=== PATIENT | female | born 1980 | race Caucasian/White ===

== ENCOUNTER 2017-02-18 11:32 | Emergency (ER) | payer MEDICAID ==
[~2017-02-18] VITALS: Ht 170.2 cm; Wt 60.8 kg
--- NOTE | 2017-02-18 11:51 | NUR ---
DR MATTA AT BEDSIDE FOR EVALUATION. URINE SPECIMEN SENT TO LAB. US DONE AT BEDSIDE.
[2017-02-18 12:15] LABS: *BILIRUBIN,URIN NEGATIVE (NEGATIVE); *BLOOD, URINE NEGATIVE (NEGATIVE); *CLARITY,URINE CLEAR (CLEAR); *COLOR,URINE YELLOW (YELLOW); *KETONES,URINE NEGATIVE (NEGATIVE); *PROTEIN,URINE NEGATIVE (NEGATIVE); *UROBILINOGEN,URINE 0.2 E.U./dl (NORMAL); LEUKOCYTE ESTERASE ,URINE NEGATIVE (NEGATIVE); NITRITE, URINE NEGATIVE (NEGATIVE); UGLUCOSE NEGATIVE (NEGATIVE)
[2017-02-18 12:22] LABS: BACTERIA,URINE FEW /HPF (NONE SEEN); MUCUS,URINE FEW /LPF (0-FEW); RBC,URINE NONE SEEN /HPF (0-3); SQUAMOUS EPITHELIAL CELL,UR MODERATE /HPF (NONE SEEN); WBC,URINE 0-3 /HPF (0-3)
[2017-02-18 13:01] VITALS: BP 109/71
--- NOTE | 2017-02-18 13:01 | NUR ---
Patient discharged to home in stable conditon. Written and verbal after care instructions given. Patient verbalizes understanding of instructions.pt walks in steady gait, no sign of distress
== END 2017-02-18 13:03 | disposition home or self-care (01) ==
LOC: ER 11:32
DX: O26.892 Other specified pregnancy related conditions, second trimester (principal); Z3A.20 20 weeks gestation of pregnancy
CPT/HCPCS: 76856; A4663

== ENCOUNTER 2017-10-15 10:49 | Emergency (ER) | payer MEDICAID ==
[~2017-10-15] VITALS: Ht 172.7 cm; Wt 61.2 kg
[2017-10-15] MEDS ORDERED: HYDROCODONE/APAP 5-325MG TABLET ONE (12:07)
[2017-10-15 12:14] LABS: BASOPHILS % (AUTO) 0.5 % (0.0-2.0); EOSINOPHILS # (AUTO) 1.5 K/uL (0.0-0.7); EOSINOPHILS % (AUTO) 19.2 % (0.0-7.0); HEMATOCRIT 39.1 % (31.2-41.9); HEMOGLOBIN 13.1 g/dL (10.9-14.3); LYMPHOCYTES # (AUTO) 1.7 K/uL (20.0-40.0); LYMPHOCYTES % (AUTO) 21.7 % (20.5-51.5); MEAN CORPUSCULAR HEMOGLOBIN 30.2 uug (24.7-32.8); MEAN CORPUSCULAR HGB CONC 34 g/dL (32.3-35.6); MEAN CORPUSCULAR VOLUME 90.1 fL (75.5-95.3); MONOCYTES # (AUTO) 0.5 K/uL (2.0-10.0); MONOCYTES % (AUTO) 6.7 % (0.0-11.0); NEUTROPHILS % (AUTO) 51.9 % (38.5-71.5); PLATELET COUNT (AUTO) 202 K/uL (179-408); RED BLOOD CELL COUNT(AUTO) 4.34 MIL/uL (3.63-4.92); WHITE BLOOD COUNT (AUTO) 7.7 K/uL (3.8-11.8)
[2017-10-15] MEDS ORDERED: HYDROCODONE/APAP 5-325MG TABLET PO ONE (12:15)
[2017-10-15 12:25] LABS: *BILIRUBIN,URIN NEGATIVE (NEGATIVE); *BLOOD, URINE NEGATIVE (NEGATIVE); *CLARITY,URINE CLEAR (CLEAR); *COLOR,URINE YELLOW (YELLOW); *KETONES,URINE NEGATIVE (NEGATIVE); *PROTEIN,URINE NEGATIVE (NEGATIVE); *UROBILINOGEN,URINE 0.2 E.U./dl (NORMAL); LEUKOCYTE ESTERASE ,URINE NEGATIVE (NEGATIVE); NITRITE, URINE NEGATIVE (NEGATIVE); UGLUCOSE NEGATIVE (NEGATIVE)
[2017-10-15 12:25] LABS: CREATININE 0.9 mg/dL (0.6-1.3); POTASSIUM 4.7 mmol/L (3.5-5.1)
[2017-10-15 12:30] LABS: BILIRUBIN,DIRECT 0.1 mg/dL (0.0-0.2); BILIRUBIN,TOTAL 0.2 mg/dL (0.2-1.0); TOTAL PROTEIN, SERUM 7.5 g/dL (6.4-8.2)
[2017-10-15 12:32] LABS: BACTERIA,URINE NONE SEEN /HPF (NONE SEEN); RBC,URINE 0-3 /HPF (0-3); SQUAMOUS EPITHELIAL CELL,UR FEW /HPF (NONE SEEN); WBC,URINE NONE SEEN /HPF (0-3)
--- NOTE | 2017-10-15 13:48 | NUR ---
PT WAS EVALUATED BY DR NOLAND. PT WAS D/C TO HOME. D/C INSTRUCTIONS GIVEN TO THE PT BY DR NOLAND.
[2017-10-15 13:49] VITALS: BP 123/77
== END 2017-10-15 13:49 | disposition home or self-care (01) ==
LOC: ER 10:49
DX: R10.10 Upper abdominal pain, unspecified (principal)
CPT/HCPCS: 36415; 70030-TC; 76700; 83690; 84703; 85025; A4663

== ENCOUNTER 2021-09-19 10:57 | Emergency (ER) | payer MEDICAID ==
[~2021-09-19] VITALS: Ht 172.7 cm; Wt 61.2 kg
--- NOTE | 2021-09-19 11:00 | NUR ---
PT IS IN ROOM #2B. DR MEDRANO EVALUATED THE PT.
[2021-09-19] MEDS: KETOROLAC TROMETHAMINE 15 MG INJ IM ONE (11:39)
[2021-09-19] MEDS ORDERED: KETOROLAC TROMETHAMINE 15 MG INJ ONE (11:47)
[2021-09-19 11:54] LABS: *URINE HCG, QUAL NEGATIVE (NEGATIVE)
[2021-09-19] MEDS ORDERED: IBUP-1955 PO (12:23)
[2021-09-19] MEDS ORDERED: CYCL5TAB PO (12:23)
[2021-09-19] MEDS: HYDROCODONE/APAP 5-325MG TABLET PO ONE (12:43)
[2021-09-19] MEDS ORDERED: HYDROCODONE/APAP 5-325MG TABLET ONE (12:53)
--- NOTE | 2021-09-19 14:04 | NUR ---
PT WAS D/C'd TO HOME. D/C INSTRUCTIONS GIVEN TO THE PT BY DR MEDRANO.
[2021-09-19 14:05] VITALS: BP 131/77
== END 2021-09-19 14:06 | disposition home or self-care (01) ==
LOC: ER 10:57
DX: M54.50 Low back pain, unspecified (principal)
CPT/HCPCS: 72110; 84703; 96372; 99284; J1885; A4663

== ENCOUNTER 2022-09-11 06:23 | Emergency (ER) | payer MEDICAID ==
[~2022-09-11] VITALS: Ht 165.1 cm; Wt 62.6 kg
[~2022-09-11 06:23] MED LIST: CYCL5TAB PO; IBUP-1955 PO
--- NOTE | 2022-09-11 07:04 | NUR ---
PT IS IN ROOM #1A. DR MEDRANO EVALUATED THE PT.
[2022-09-11] MEDS ORDERED: ALPRAZOLAM 0.5 MG TABLET ONE ×2 (07:14→08:32)
[2022-09-11] MEDS ORDERED: IV NORMAL SALINE 1000 ML BAG IV ONE (07:15)
[2022-09-11] MEDS ORDERED: ALPRAZOLAM 0.25 MG TABLET PO ONE ×2 (07:15→09:00)
[2022-09-11 07:30] LABS: HEMATOCRIT 38.8 % (31.2-41.9); MEAN CORPUSCULAR HEMOGLOBIN 30.5 uug (24.7-32.8); MEAN CORPUSCULAR VOLUME 92.2 fL (75.5-95.3); PLATELET COUNT (AUTO) 234 K/uL (179-408)
[2022-09-11 07:39] LABS: CREATININE 0.7 mg/dL (0.6-1.3); POTASSIUM 4.4 mmol/L (3.5-5.1)
--- NOTE | 2022-09-11 09:05 | NUR ---
PT WAS D/C'd TO HOME. D/C INSTRUCTIONS GIVEN TO THE PT BY DR MEDRANO.
[2022-09-11 09:06] VITALS: BP 127/69
== END 2022-09-11 09:07 | disposition home or self-care (01) ==
LOC: ER 06:27
DX: F41.9 Anxiety disorder, unspecified (principal); E87.1 Hypo-osmolality and hyponatremia; Z76.0 Encounter for issue of repeat prescription; F32.A Depression, unspecified; Z87.19 Personal history of other diseases of the digestive system
CPT/HCPCS: 99284; 96360; 80048; 85025; 36415; 93005; J7040; A4663

== ENCOUNTER 2023-08-26 20:30 | Emergency (ER) | payer MEDICAID | END 2023-08-26 21:10 | disposition left against medical advice (07) | LOC: ER 20:33 | DX: R39.198 Other difficulties with micturition (principal); Z53.21 Procedure and treatment not carried out due to patient leaving prior to being seen by health care provider ==